=== PATIENT | male | born 1990 | race Caucasian/White ===

== ENCOUNTER 2023-10-08 16:27 | Outpatient (CLI) | payer OTHER, SELFPAY ==
--- NOTE | ~2023-10-08 | MR_ITS ---
EXAMINATION: MR shoulder LT wo con DATE: 10/08/2023 17:26 INDICATION: Primary osteoarthritis, left shoulder. TECHNIQUE: Magnetic resonance imaging (MRI) of the left shoulder was performed without intravenous co ntrast. Sequences included axial PD-weighted FS FSE, coronal oblique PD-weighted FS FSE and T2-weight ed FS FSE, and sagittal oblique T2-weighted FS FSE and T1-weighted FSE. COMPARISON: None. FINDINGS: Coracoacromial arch: The acromion undersurface is curved in morphology (type II). There is severe acromioclavicular joint osteoarthritis. There is mild subacromial/subdeltoid bursitis. Rotator cuff: There is severe supraspinatus and infraspinatus tendinopathy. Teres minor tendon is normal. Subscapul tray tendon is abnormal. There is no asymmetric fatty atrophy of the rotator cuff muscle bellies. Biceps tendon and glenoid labrum: Biceps tendon is in bicipital groove. There is mild intra-articular biceps tendinopathy. There is deg enerative tearing of the glenoid labrum. Fluid: There is a small glenohumeral joint effusion. Bones/cartilage: There is full-thickness cartilage loss of posterior glenoid with subchondral cysts. There is full-thi ckness cartilage loss of humeral head superomedially. Osteophytes are noted. IMPRESSION: 1. Severe glenohumeral joint chondrosis. 2. Severe rotator cuff tendinopathy. No tear. 3. Severe acromioclavicular joint osteoarthritis. 4. Mild biceps tendinopathy. 5. Small glenohumeral joint effusion. 6. Mild subacromial/subdeltoid bursitis. Reviewed, dictated and finalized at location E.
== END 2023-10-08 16:28 | disposition home or self-care (01) ==
LOC: ANHIMG 16:28
PROVIDERS: PCP Internal Medicine; Visit Provider Orthopaedic Surgery
DX: M19.012 Primary osteoarthritis, left shoulder (principal); M94.212 Chondromalacia, left shoulder; M75.32 Calcific tendinitis of left shoulder; M75.22 Bicipital tendinitis, left shoulder; M25.412 Effusion, left shoulder; M75.52 Bursitis of left shoulder
CPT/HCPCS: 73221

== ENCOUNTER 2024-02-10 01:00 | Day surgery (SDC) | payer OTHER, SELFPAY ==
[2024-01-31 14:46] VITALS: BMI 36.3
--- NOTE | 2024-01-31 15:08 | PC.NURSE ---
Report to the Outpatient Waiting Room, entrance under the green pavilion located off [facility], at time _10:00AM on date _02/10/24 . Planned Procedure Time: __12:00AM . Time changes happen often and if your time is changed the preop area will call you the afternoon before. - You and your visitor will be asked to self-screen and do not enter if you have any COVID symptoms. - A mask is optional within the hospital at this time. Patients may have clear liquids (water, carbonated beverages, clear teas, apple juice) until 3 hours(9:00AM) prior to surgery with a maximum of 20 ounces. - No food from midnight until time of surgery Take the following medications with a SIP of water the morning of surgery: ___NONE DO NOT STOP ANY OF YOUR OTHER PRESCRIPTION MEDICATIONS PRIOR TO SURGERY ?EXCEPT THE FOLLOWING Medications to discontinue per physician NONE Date to take last dose Please no make-up, nail italian, hairspray, perfume, deodorant, or body powder the day of surgery. No jewelry (including any body piercings) or valuables the day of surgery, leave them at home. Please take a shower or bath the night before, or the morning of, surgery with an antibacterial soap. Wear comfortable, loose fitting clothing. Children are encouraged to wear pajamas. - Jewelry must be removed prior to entering the operating room. Rings and piercings that are not removed may be cut off. - The hospital will not accept responsibility for valuables. - Please leave all valuables, including medications, at home the day of surgery. If you are going home after surgery, a licensed transportation driver must drive you home. - NO public transportation without another adult if you receive anesthesia. - We recommend that an adult stay with you for 24 hours following discharge. - We also recommend that you do not drive, make important decision, drink alcoholic beverages, or take any drugs that were not prescribed by your health care provider for at least 24 hours after your discharge time. Follow any additional instructions given to you from your surgeon. If you or anyone in your household have experienced Covid symptoms in the past week, please notify your surgeon or the nurse liaison at the phone number below for possible testing. Telephone instructions given to _CODY and asked if any additional questions and then verbalized understanding. Patient advised to call surgeon office or pre surgery nurse liaison [phone] if any additional questions.
[2024-02-10] VITALS (12 sets, daily range): BP systolic 108–161; BP diastolic 60–98; PULSE 82–88; RESP 14–108; TEMP 36.3–36.5; O2SAT 90–96
--- NOTE | ~2024-02-10 | XR_ITS ---
XR shoulder LT min 2V Ordering provider: Chauncey Conner MD History: . SHOULDER SURGERY . Comparison: None. FINDINGS: BONES: No acute fracture or dislocation. JOINT SPACES: The acromioclavicular joint is normal. The glenohumeral joint is normal. SOFT TISSUES: Normal. Opacification and the left lung which may indicate pneumonia or a mass. Proper imaging is advised. IMPRESSION: No acute osseous abnormality left shoulder. Opacification in the left lung. Proper imaging advised. Reviewed, dictated and finalized at location A.
[2024-02-10] MEDS: ACETAMINOPHEN 500 MG TABLET 1000 MG PO (10:20)
[2024-02-10] MEDS: LACTATED RINGERS 1,000 ML 30 ML IV CONT ×2 (10:28→14:38)
--- NOTE | 2024-02-10 11:20 | WPDANESEPPF ---
Anes - Initial Pre Proc Eval Procedure: Operation Date: 02/10/24 12:00 Proposed Procedures p Left Shoulder Arthroscopic Distal Clavicle Excision with Extensive Debridement, Mini Open Biceps Tenodesis - Chauncey Conner MD Date/Time: 02/10/24 11:20 Surgeon: Chauncey Conner MD Pre Op Diagnosis: left shoulder labral tear and arthritis Patient Data Age: 33 Gender: M Height: 1.91 m Weight: 131.2 kg Last Vital Signs Temp 97.7 F 02/10/24 10:29 Pulse 86 02/10/24 10:29 Resp 16 02/10/24 10:29 BP 133/82 02/10/24 10:29 Pulse Ox 96 02/10/24 10:29 O2 Del Method Room Air 02/10/24 10:29 Allergies Allergy/AdvReac Type Severity Reaction Status Date / Time No Known Allergies Allergy Verified 02/10/24 10:08 Home Medications Medication Instructions Recorded Confirmed Type needle (disp) 18 G 18 gauge x 1 #100 ea 06/28/23 01/20/24 Rx (BD Regular [place]vel [place]) eszopiclone 2 mg tablet (Lunesta) 2 mg PO QHS #1 tablet 01/23/24 01/31/24 Rx testosterone cypionate 200 mg/mL 200 mg IM WEEKLY #12 mL 02/03/24 02/10/24 Rx intramuscular oil Patient hx anesthesia problems: other (Hx of being slow to emerge and sensitive to anesthetics, also hx of waking up combative. ) Family hx anesthesia problems: none Results Review: All pre-operative results and documents have been reviewed as part of the pre-operative evaluation. [facility] Past Medical History Medical History Brown recluse spider bite XIMENA (obstructive sleep apnea) Surgical History Surgical History History of shoulder surgery Social History Social History Smoking status: Never smoker Alcohol intake: never Substance use: never Substance use type: does not use Do You Feel Safe in your Home?: Yes Lack of Transportation: No Lack of Food: Never True Current Housing: I Have Housing Concerned About Future Housing: No Difficulty Paying Gas/Electric Bills: No Difficulty Paying for Meds: No Currently Unemployed: No Education: Master's Degree or Higher Difficulty w/ Childcare or Family Care: No Living arrangements: with family Spiritual care concerns: No Anes - Eval Final PreProcedure Day of Procedure 02/10/24 11:20 Patient weight: obese Heart: regular rate and rhythm Lungs: clear to auscultation Airway: Mallampati scale class II Neurological: alert and oriented Last oral intake: >/= 8 hours ASA classification: II Emergent: no Anesthetic plan: proceed Anesthesia type and monitoring: general and standard monitoring Results Review: All pre-operative results and documents have been reviewed as part of the pre-operative evaluation. IXMENA prev on CPAP/Bipap, but not currently on. Informed Consent: The patient's anesthetic plan and its attendant risks and benefits were discussed with the patient/family/POA. Questions were solicited and answers provided to the satisfaction of the patient/family/POA.
[2024-02-10] MEDS: KETOROLAC 15 MG/ML VIAL (*BKC) IV PUSH (11:44)
--- NOTE | 2024-02-10 12:11 | WPDHPUPDATE1 ---
History and Physical Update Update Date/Time: 02/10/24 12:11 History and Physical has been reviewed, including an updated exam of the patient. There are NO changes in the patient's condition. Risks, benefits, and alternatives have been discussed and questions answered. Patient agrees to proceed with procedure.
[2024-02-10] MEDS: ceFAZolin 3 GM/D5W 100 ML 100 ML IVPB (12:18)
[2024-02-10] MEDS: BUPivacaine HCL 0.5% 10 ML AMP 40 ML INFILTRATE (13:02)
[2024-02-10] MEDS: EPINEPHrine HCL INJ 1 MG/ML AMPUL 3 MG IRRIGATION (13:03)
--- NOTE | 2024-02-10 15:46 | W.PM.PROC2 ---
Procedure Note - Detailed Date of Procedure 02/10/24 Pre-op Diagnosis Left shoulder A/C join and glenohumeral arthritis with labral tear. Post-op Diagnosis Other (1. Left shoulder glenohumeral joint arthritis 2. Left shoulder AC joint arthritis 3. Left shoulder labral tear 4. History of posterior labral repair 5. Capsulitis with contracture) Procedure Performed Arthroscopic left shoulder 1. Synovectomy, chondroplasty, and labral debridement. 2. Capsule release 3. Distal clavicle excision Surgeon Chauncey Conner MD Assistant Import Manager Hortensia Landa PA-C Anesthesia General Indications Persistent shoulder pain, primarily at the A/C joint worse with overhead lifting. Also posterior shoulder crepitus and pain, consistent with djd, progressive labral tearing, and previous posterior labral repair. He also complains of stiffness with limited external rotation confirmed during exam under anesthesia. Findings Extremely large muscular shoulder. Moderate degenerative disease with capsulitis and contracture. External rotation limited to 40 degrees. Release performed of the anterior and inferior capsule. Extensive labrum tear debided, expecially posteriorly at the previous repair. Prominent suture material was removed. The superior labrum, rotator cuff, and biceps were healthy. The subacromial space did not show signs of impingment. The distal clavicle was excised. Description of Procedure Preoperative antibiotics were given. A general anesthetic was administered. The patient was carefully positioned in the beach chair position. The non operative extremity in the head and neck were carefully positioned to avoid pressure and maintain correct alignment. Examination of the left shoulder confirms significant tightness with external rotation approximately 35-40 degrees with a hard stop. Standard posterior and anterior arthroscopic portals were established. Given the patient's large muscular size, particular attention to appropriate portal ankles were confirmed. The glenohumeral joint showed significant arthritic change with grade 3 chondromalacia on the humerus and grade 2/3 on the glenoid. Small inferior osteophyte confirmed on the humerus. Moderate synovitis which was debrided and contracture of the anterior inferior capsule. The hook probe was used to release the anterior-inferior capsule to about the 6 o'clock position. The arm was felt to release quite nicely. The labrum was debrided from the anterior inferior and posterior aspects. Posterior labrum was more hypertrophied and there was scar tissue consistent with the prior repair. Suture material was quite loose and appeared to be a source of the patient's crepitus at the posterior shoulder. This was carefully removed. The radiofrequency probe was used to stabilize and further debride the labrum tissue. The superior labrum was nearly normal and the biceps anchor and biceps were very healthy. The supraspinatus and subscapularis showed minimal fraying and no significant tearing. Gentle chondroplasty was performed on the humeral cartilage to create smooth transitions. Attention was turned to the subacromial space. The bursa was mildly thickened but there was no significant evidence for subacromial impingement and the rotator cuff appeared normal. The distal clavicle was excised after careful exposure and an accessory portal anterior to the joint. Approximately 10 mm of bone resection was performed with the arthroscopic bur. Particular care was taken to assure complete excision of the superior bone. The loose bone fragments were carefully irrigated. The arthroscopic instruments were removed. The wounds were closed with interrupted 3-0 Monocryl suture followed by Steri-Strips. Bulky dressing and sling was applied. The patient was extubated and brought to the recovery room in stable condition. Estimated Blood Loss 20 Drains No Packing No Pathology None sent Complications No immediate complications Condition Stable Disposition PACU [facility] Billing Surgery - Charge Forward: Surgery Billing
[2024-02-10] MEDS: oxyCODONE HCL (*CRX) 5 MG TAB IR PO (16:29)
[2024-02-10] MEDS: fentaNYL CITRATE INJ (*CRX) 100 MCG/2 ML VIAL 25 MCG IV PUSH ×2 (16:45→16:48)
== END 2024-02-10 17:17 | disposition home or self-care (01) ==
PROVIDERS: PCP Internal Medicine; Visit Provider Orthopaedic Surgery
PROC: (CPT 29805; principal; 2024-02-10 12:00)
DX: S43.432A Superior glenoid labrum lesion of left shoulder, initial encounter (principal); M25.712 Osteophyte, left shoulder; M94.212 Chondromalacia, left shoulder; M65.812 Other synovitis and tenosynovitis, left shoulder; M19.012 Primary osteoarthritis, left shoulder; G47.33 Obstructive sleep apnea (adult) (pediatric); E66.9 Obesity, unspecified; Z68.36 Body mass index [BMI] 36.0-36.9, adult; Z98.890 Other specified postprocedural states; X50.0XXA Overexertion from strenuous movement or load, initial encounter; M75.02 Adhesive capsulitis of left shoulder
CPT/HCPCS: 29824; 73030; A9270; J0171; J0690; J1100; J1171; J1200; J1885; J2003; J2250; J2405; J2704; J3010; J7120